=== PATIENT | female | born 1995 | race Caucasian/White ===

== ENCOUNTER 2018-05-06 00:31 | Emergency (ER) | payer BC ==
[~2018-05-06] VITALS: Ht 172.7 cm; Wt 75.0 kg
[2018-05-06] MEDS ORDERED: ibuprofen tablet 400 MG TABLET PO ONE (03:00)
[2018-05-06 03:08] VITALS: BP 125/64
== END 2018-05-06 03:10 | disposition home or self-care (01) ==
LOC: ER 00:32
DX: S42.402A Unspecified fracture of lower end of left humerus, initial encounter for closed fracture (principal); W01.0XXA Fall on same level from slipping, tripping and stumbling without subsequent striking against object, initial encounter; Y93.89 Activity, other specified; Y92.89 Other specified places as the place of occurrence of the external cause; Y99.8 Other external cause status
CPT/HCPCS: 29105; 73080; 99283